=== PATIENT | male | born 1970 | race Caucasian/White ===

== ENCOUNTER 2022-11-07 02:18 | Inpatient (IN) | payer MEDICAID ==
[~2022-11-07] VITALS: Ht 165.1 cm; Wt 78.5 kg
--- NOTE | 2022-11-07 02:31 | NUR ---
[id number] FROM HOME, PT CC SOB. PT WAS ASLEEP AND WOKE UP SUDDENLY, PANICKING. HAD HX OF ND 10 DAYS AGO, HAD STENT PLACEMENT A MONTH AGO. PATIENT CAME WITH IV LUPE G20 ON RIGHT AC. PLACED COMFORTABLY IN BED. PATIENT IS FRISIAN SPEAKING. VERY ANXIOUS. KEPT ASKING FOR WATER. PER FINE CHEMICALS OPERATOR, THERE WAS A LIBERTARIAN AT PT'S HOUSE AND PT DRANK SOME ALCOHOL. VITALS CHECKED. ATTACHED TO MONITOR. WILL CONTINUE TO MONITOR PATIENT. INTERVIEWED BY DR CINTRON WITH CN ED MANAGER PARTY
--- NOTE | 2022-11-07 02:31 | NUR ---
325 ASPIRIN, NITRO 0.4 X2 SPRAY GIVEN PER NOSTRILS BY DEPARTURE CLERK TOURIST CAMP ATTENDANT. CAME WITH IV LUPE G20 ON RIGHT AC
--- NOTE | 2022-11-07 02:48 | NUR ---
BLOOD WORK COLLECTED AND SENT TO LAB
--- NOTE | 2022-11-07 02:54 | NUR ---
EKG AT BEDSIDE
[2022-11-07 02:58] LABS: BASOPHILS # (AUTO) 0.1 K/uL (0.0-0.2); BASOPHILS % (AUTO) 0.9 % (0.0-2.0); EOSINOPHILS % (AUTO) 1.3 % (0.0-6.0); HEMATOCRIT 42 % (39-51); HEMOGLOBIN 13.7 g/dL (13.5-17.5); LYMPHOCYTES # (AUTO) 2.6 K/uL (0.8-4.8); LYMPHOCYTES % (AUTO) 31.2 % (20.0-44.0); MEAN CORPUSCULAR HGB CONC 33 g/dl (31.0-36.0); MEAN CORPUSCULAR VOLUME 89 fL (80-96); MONOCYTES # (AUTO) 0.6 K/uL (0.1-1.30); MONOCYTES % (AUTO) 7.1 % (2.0-12.0); NEUTROPHILS # (AUTO) 4.9 K/uL (1.8-8.9); NEUTROPHILS % (AUTO) 59.5 % (43.0-81.0); PLATELET COUNT (AUTO) 207 K/uL (150-450); RED BLOOD CELL COUNT(AUTO) 4.73 MIL/uL (4.5-6.0); WHITE BLOOD COUNT (AUTO) 8.2 K/uL (4.3-11.0)
[2022-11-07 03:20] LABS: CALCIUM, SERUM 9.6 mg/dL (8.5-10.1); CARBON DIOXIDE 22 mmol/L (21-32); CHLORIDE 109 mmol/L (98-107); CREATININE 0.9 mg/dL (0.6-1.3); GLUCOSE 105 mg/dL (74-106); POTASSIUM 3.2 mmol/L (3.5-5.1); SODIUM SERUM 145 mmol/L (136-145); UREA NITROGEN, BLOOD 12 mg/dL (7-18)
--- NOTE | 2022-11-07 03:35 | NUR ---
TROPONIN 280, NOTIFIED.
--- NOTE | 2022-11-07 04:25 | NUR ---
COVID SWAB AND MRSA SWAB COLLECTED, SENT TO LAB
[2022-11-07] MEDS ORDERED: ONDANSETRON HCL/PF 4 MG/2 ML VIAL IVP PRN (07:00)
[2022-11-07] MEDS ORDERED: ACETAMINOPHEN 325 MG TABLET PO PRN (07:00)
[2022-11-07] MEDS ORDERED: MORPHINE SULFATE INJ 2 MG/ML DISP.SYRIN IV PRN (07:00)
--- NOTE | 2022-11-07 08:12 | NUR ---
BED ASSIGNMENT 116-2
--- NOTE | 2022-11-07 08:17 | NUR ---
REPORT GIVEN TO ABELARDO VILLAGRAN
[2022-11-07 08:40] VITALS: BP 124/89
--- NOTE | 2022-11-07 08:40 | NUR ---
RECEIVED PT FROM ER VIA [facility]. PT ALERT ORIENTED X 4, AMBULATORY WITH BPR, ON EXTERNAL CLIENT DEVELOPMENT MANAGER SR. IV ACCESS RIGHT AC, FLUSHES WELL. NO C/O SOB OR PAIN AT THIS TIME. WILL CONTINUE TO MONITOR.
[2022-11-07] MEDS: ASPIRIN 81 MG TAB.CHEW PO SCH (09:36)
[2022-11-07] MEDS: ENOXAPARIN SODIUM 80 MG/0.8 ML DISP.SYRIN SQ SCH ×2 (09:38→21:24)
[2022-11-07] MEDS: POTASSIUM CHLORIDE 20 MEQ TAB.PRT.SR PO SCH ×2 (09:41→10:42)
[2022-11-07] MEDS ORDERED: LISI-768 PO (10:25)
[2022-11-07] MEDS ORDERED: ASPI-1169 PO (10:25)
[2022-11-07] MEDS ORDERED: ATOR40TA PO (10:25)
[2022-11-07] MEDS ORDERED: CLOP75TA15 PO (10:25)
[2022-11-07] MEDS ORDERED: METO25TA20 PO (10:25)
[2022-11-07] MEDS: TICAGRELOR 90 MG TABLET PO SCH ×2 (10:42→17:06)
[2022-11-07 12:00] VITALS: BP 131/92
[2022-11-07] MEDS: METOPROLOL TARTRATE 50 MG TABLET PO SCH ×2 (12:08→17:06)
[2022-11-07 16:00] VITALS: BP 139/83
--- NOTE | 2022-11-07 19:27 | NUR ---
RN CLOSING NOTE PT AWAKE, ALERT ORIENTED X 4, COOPERATIVE. AMBULATORY WITH BPR, ON EXTERNAL MUSIC PASTOR SR. IV ACCESS RIGHT AC, FLUSHES WELL. NO C/O SOB OR PAIN AT THIS TIME. WILL ENDORSE TO THE HELP DESK MANAGER FOR VIELKA.
[2022-11-07 20:00] VITALS: BP 113/79
--- NOTE | 2022-11-07 20:47 | NUR ---
RN OPENING NOTE PT AWAKE, ALERT ORIENTED X 4, COOPERATIVE. AMBULATORY WITH BPR, ON EXTERNAL FLOUR BLENDER SR. IV ACCESS RIGHT AC, FLUSHES WELL. NO C/O SOB OR PAIN AT THIS TIME. SAFETY MEASURES FOLLOWED.HOB ELEVATED BED IN LOCKED POSITION.
[2022-11-07] MEDS ORDERED: ATORVASTATIN 10 MG TABLET PO SCH (22:00)
[2022-11-08 00:31] VITALS: BP 133/86
[2022-11-08 04:00] VITALS: BP 124/74
[2022-11-08] MEDS: METOPROLOL TARTRATE 50 MG TABLET PO SCH ×4 (05:28→18:19)
[2022-11-08 06:14] LABS: BASOPHILS % (AUTO) 0.4 % (0.0-2.0); EOSINOPHILS % (AUTO) 2.3 % (0.0-6.0); HEMATOCRIT 42 % (39-51); HEMOGLOBIN 13.5 g/dL (13.5-17.5); LYMPHOCYTES # (AUTO) 3.3 K/uL (0.8-4.8); LYMPHOCYTES % (AUTO) 37.7 % (20.0-44.0); MEAN CORPUSCULAR HGB CONC 32 g/dl (31.0-36.0); MEAN CORPUSCULAR VOLUME 90 fL (80-96); MONOCYTES # (AUTO) 0.6 K/uL (0.1-1.30); MONOCYTES % (AUTO) 6.5 % (2.0-12.0); NEUTROPHILS # (AUTO) 4.6 K/uL (1.8-8.9); NEUTROPHILS % (AUTO) 53.1 % (43.0-81.0); PLATELET COUNT (AUTO) 205 K/uL (150-450); RED BLOOD CELL COUNT(AUTO) 4.64 MIL/uL (4.5-6.0); WHITE BLOOD COUNT (AUTO) 8.6 K/uL (4.3-11.0)
[2022-11-08 06:52] LABS: ALBUMIN 3.4 g/dL (3.4-5.0); BILIRUBIN,TOTAL 0.5 mg/dL (0.2-1.0); CALCIUM, SERUM 9.2 mg/dL (8.5-10.1); CREATININE 1.2 mg/dL (0.6-1.3); MAGNESIUM 2.1 mg/dL (1.8-2.4); PHOSPHORUS 4.2 mg/dL (2.5-4.9); POTASSIUM 4.2 mmol/L (3.5-5.1); TOTAL PROTEIN, SERUM 6.9 g/dL (6.4-8.2)
--- NOTE | 2022-11-08 06:53 | NUR ---
RN CLOSING NOTE PT AWAKE, ALERT ORIENTED X 4, COOPERATIVE. AMBULATORY WITH BPR, ON EXTERNAL COURT WORKER SR/SB 55. IV ACCESS RIGHT AC, FLUSHES WELL. NO C/O SOB OR PAIN AT THIS TIME. SAFETY MEASURES FOLLOWED.HOB ELEVATED BED IN LOCKED POSITION.
--- NOTE | 2022-11-08 07:15 | NUR ---
GOLF SALES MANAGER OPENING NOTE PATIENT A/S/O X4 TAJIK SPEAKING MAKING NEEDS KNOWN. ON IN ROOM AIR, O2 SAT 99% NO S/S OF RESPIRATORY DISTRESS NOTED. SL ON RAC #20G INTACT. MOVE ALL EXT. WELL. AMBULATORY. ON TELE SR/SB ASYMPTOMATIC. SAFETY MEASURES IN PLACE. BED LOCKED TO THE LOWEST POSITION. CALL LIGHT, TABLE WITHIN REACH. WILL CONT. TO MONITOR.
[2022-11-08] MEDS: ASPIRIN 81 MG TAB.CHEW PO SCH (09:38)
[2022-11-08] MEDS: TICAGRELOR 90 MG TABLET PO SCH ×2 (09:39→18:19)
[2022-11-08] MEDS: ENOXAPARIN SODIUM 80 MG/0.8 ML DISP.SYRIN SQ SCH (09:42)
[2022-11-08] MEDS ORDERED: IV NS 0.9% 250 ML IV ONE (10:38)
[2022-11-08] MEDS ORDERED: IOHEXOL-350 100 ML VIAL IV ONE (10:38)
[2022-11-08] MEDS ORDERED: CT SWABBABLE VALVE TRANS SET 1 EA INFUS.SET MC ONE (10:38)
[2022-11-08] MEDS ORDERED: NITROGLYCERIN 0.4 MG/TAB BOTTLE ONE (10:56)
[2022-11-08] MEDS ORDERED: NITROGLYCERIN 0.4 MG/TAB BOTTLE SL ONE (11:00)
[2022-11-08] MEDS ORDERED: METOPROLOL TARTRATE INJ 5 MG/5 ML AMPUL IVP PRN (11:00)
--- NOTE | 2022-11-08 11:02 | NUR ---
RN NOTES CTA PROCEDURE WELL TOLERATED BY THE PT. PT IS AAOX4, NOT IN RESPIRATORY DISTRESS, V/S STABLE, KEPT RESTED AND COMFORTABLE. PT RETURN TO ROOM 116-2 IN STABLE CONDITION.
[2022-11-08] MEDS ORDERED: TICA90TA PO (13:31)
[2022-11-08 14:49] VITALS: BP 108/68
--- NOTE | 2022-11-08 18:00 | NUR ---
VENDOR ANALYST DISCHARGE NOTE PATIENT STABLE FOR DISCHARGE DIRECTED BY MD. DISCHARGE INSTRUCTION GIVEN TO PATIENT AND PATIENT' NIECE, BOTH VERBALIZED UNDERSTANDING INSTRUCTIONS INCLUDING MEDS, NAME, PURPOSE AND POSSIBLE SIDE EFFECT. MEDS ORDERS SENT TO HIS PHARMACY. IV ACCESS REMOVED CATHETER TIP INTACT, NO S/S OF INFILTRATION NOTED. PRESSURE DRESSING APPLIED. GOING HOME AMBULATORY ACCOMPANIED BY STAFF NURSE AND PATIENT NIECE. PATIENT DENIES PAIN, DENIES RESPIRATORY DISTRESS.
[2022-11-08 18:19] VITALS: BP 117/62
== END 2022-11-08 18:50 | disposition home or self-care (01) | DRG 190 ==
LOC: ER 02:21 → TELE1 08:14
DX: I21.4 Non-ST elevation (NSTEMI) myocardial infarction (principal); E78.00 Pure hypercholesterolemia, unspecified; I10 Essential (primary) hypertension; E87.6 Hypokalemia; E78.5 Hyperlipidemia, unspecified; I25.2 Old myocardial infarction; Z20.822 Contact with and (suspected) exposure to COVID-19
CPT/HCPCS: 36415; 71045-TC; 75574; 80048-TC; 80053-TC; 80061-TC; 83735-TC; 84100-TC; 84484-TC; 85025-TC; 87081-TC; 93307-TC; C9803; G0378; J1650; J2405; J7050; Q9967